=== PATIENT | female | born 1955 | race Caucasian/White ===

== ENCOUNTER 2017-05-31 00:04 | Emergency (ER) | payer BC ==
[~2017-05-31] VITALS: Ht 154.9 cm; Wt 68.9 kg
[~2017-05-31 00:04] MED LIST: RANI-362 PO
[2017-05-31 00:15] VITALS: BP_SYST 157
[2017-05-31 00:53] LABS: BASOPHILS # (AUTO) 0.1 K/uL (0.0-0.2); BASOPHILS % (AUTO) 0.9 % (0.0-2.0); EOSINOPHILS % (AUTO) 0.2 % (0.0-4.0); HEMATOCRIT 38.4 % (36-48); HEMOGLOBIN 12.7 g/dL (12.0-16.0); LYMPHOCYTES % (AUTO) 6.2 % (20.5-51.5); MEAN CORPUSCULAR HEMOGLOBIN 30 pg (27-31); MEAN CORPUSCULAR HGB CONC 33 % (32-36); MEAN CORPUSCULAR VOLUME 92 fL (79.0-98.0); MONOCYTES # (AUTO) 1.1 K/uL (0.0-1.0); MONOCYTES % (AUTO) 6.7 % (1.7-9.3); NEUTROPHILS # (AUTO) 14.3 K/uL (1.8-7.7); PLATELET COUNT (AUTO) 296 K/uL (130-430); WHITE BLOOD COUNT (AUTO) 16.5 K/uL (4.8-10.8)
[2017-05-31] MEDS: KETOROLAC TROMETHAMINE 60 MG/2 ML VIAL IM ONE (01:16)
[2017-05-31 02:51] LABS: BILIRUBIN,URINE NEGATIVE (NEGATIVE); COLOR,URINE YELLOW (YELLOW); GLUCOSE,URINE NEGATIVE (NEGATIVE); KETONES,URINE NEGATIVE (NEGATIVE); LEUKOCYTE ESTERASE ,URINE 3+ (NEGATIVE); NITRITE, URINE NEGATIVE (NEGATIVE); PROTEIN URINE NEGATIVE (NEGATIVE); UROBILINOGEN,URINE 0.2 (0.2-1.0)
[2017-05-31 02:52] LABS: BLOOD, URINE TRACE (NEGATIVE); CLARITY/URINE HAZY (CLEAR)
[2017-05-31 02:55] LABS: BACTERIA,URINE MODERATE /HPF (None Seen); MUCUS,URINE None Seen /LPF (None Seen); WBC,URINE 80-100 /HPF (0-3)
[2017-05-31] MEDS: cefTRIAXone 1 GM VIAL IM ONE (03:09)
[2017-05-31] MEDS: LIDOCAINE MPF 1% 50 MG/5 ML AMP INJ ONE (03:10)
[2017-05-31 03:22] VITALS: BP_SYST 107
== END 2017-05-31 03:23 | disposition home or self-care (01) ==
LOC: SED 00:04
DX: N10 Acute pyelonephritis (principal); K21.9 Gastro-esophageal reflux disease without esophagitis
CPT/HCPCS: 36415; 81000; 83605; 85025; 87086; 96372; 99284; J0696; J1885; J2001

== ENCOUNTER 2018-09-24 23:43 | Emergency (ER) | payer BC ==
[~2018-09-24] VITALS: Ht 154.9 cm; Wt 72.6 kg
[2018-09-24 23:57] VITALS: BP_SYST 130
[2018-09-25] MEDS ORDERED: ONDANSETRON HCL 4 MG/2 ML VIAL IVP ONE (00:30)
[2018-09-25] MEDS ORDERED: NACL 0.9% 1,000 ML IV ONE (00:30)
[2018-09-25 00:55] LABS: BASOPHILS # (AUTO) 0.1 K/uL (0.0-0.2); BASOPHILS % (AUTO) 0.9 % (0.0-2.0); EOSINOPHILS # (AUTO) 0.1 K/uL (0.0-0.4); EOSINOPHILS % (AUTO) 0.7 % (0.0-4.0); HEMATOCRIT 45.3 % (36-48); HEMOGLOBIN 14.7 g/dL (12.0-16.0); LYMPHOCYTES # (AUTO) 0.6 K/uL (1.0-5.5); LYMPHOCYTES % (AUTO) 6.9 % (20.5-51.5); MEAN CORPUSCULAR HEMOGLOBIN 30 pg (27-31); MEAN CORPUSCULAR HGB CONC 33 % (32-36); MEAN CORPUSCULAR VOLUME 93 fL (79.0-98.0); MONOCYTES # (AUTO) 0.1 K/uL (0.0-1.0); MONOCYTES % (AUTO) 1.7 % (1.7-9.3); NEUTROPHILS # (AUTO) 7.5 K/uL (1.8-7.7); NEUTROPHILS % (AUTO) 89.8 % (40.0-70.0); PLATELET COUNT (AUTO) 432 K/uL (130-430); RED BLOOD CELL COUNT(AUTO) 4.88 MIL/uL (4.2-6.2); RED CELL DISTRIBUTION WIDTH 12.7 % (9.0-15.0); WHITE BLOOD COUNT (AUTO) 8.4 K/uL (4.8-10.8)
[2018-09-25 01:03] LABS: CALCIUM 9.1 mg/dL (8.4-11.0); CREATININE 0.9 mg/dL (0.55-1.30); POTASSIUM 3.9 mmol/L (3.5-5.1)
[2018-09-25 01:08] LABS: ALBUMIN 3.7 g/dL (3.4-4.8); TOTAL BILIRUBIN 0.5 mg/dL (0.0-1.0)
[2018-09-25 01:45] VITALS: BP_SYST 127
== END 2018-09-25 01:45 | disposition home or self-care (01) ==
LOC: SED 23:43
DX: A08.4 Viral intestinal infection, unspecified (principal); K21.9 Gastro-esophageal reflux disease without esophagitis; R03.0 Elevated blood-pressure reading, without diagnosis of hypertension
CPT/HCPCS: 36415; 80053; 85025; 86710; 96361; 96374; 99283; J2405; J7030

== ENCOUNTER 2020-12-15 08:30 | Emergency (ER) | payer BC, OTHER, SELFPAY ==
[~2020-12-15] VITALS: Ht 154.9 cm; Wt 68.9 kg
[2020-12-15 08:42] VITALS: BP_SYST 147
[2020-12-15] MEDS ORDERED: ONDANSETRON 4 MG ODT TAB ONE ×2 (08:56→09:13)
[2020-12-15] MEDS ORDERED: ACETAMINOPHEN 325 MG TABLET PO ONE (09:00)
[2020-12-15] MEDS ORDERED: ONDANSETRON 4 MG ODT TAB PO ONE (09:00)
[2020-12-15 09:10] LABS: BASOPHILS # (AUTO) 0.1 K/uL (0.0-0.2); EOSINOPHILS # (AUTO) 0.2 K/uL (0.0-0.4); EOSINOPHILS % (AUTO) 3.5 % (0.0-4.0); HEMATOCRIT 39.2 % (36-48); LYMPHOCYTES # (AUTO) 1.3 K/uL (1.0-5.5); LYMPHOCYTES % (AUTO) 27.4 % (20.5-51.5); MEAN CORPUSCULAR HEMOGLOBIN 31 pg (27-31); MEAN CORPUSCULAR HGB CONC 33 % (32-36); MEAN CORPUSCULAR VOLUME 93 fL (79.0-98.0); MONOCYTES # (AUTO) 0.3 K/uL (0.0-1.0); MONOCYTES % (AUTO) 6.8 % (1.7-9.3); NEUTROPHILS % (AUTO) 61.3 % (40.0-70.0); PLATELET COUNT (AUTO) 315 K/uL (130-430); RED BLOOD CELL COUNT(AUTO) 4.23 MIL/uL (4.2-6.2); RED CELL DISTRIBUTION WIDTH 14.1 % (9.0-15.0); WHITE BLOOD COUNT (AUTO) 4.8 K/uL (4.8-10.8)
[2020-12-15 09:24] LABS: CALCIUM 8.6 mg/dL (8.4-11.0); CREATININE 0.71 mg/dL (0.55-1.30); POTASSIUM 3.9 mmol/L (3.5-5.1)
[2020-12-15 09:25] LABS: BILIRUBIN,URINE NEGATIVE (NEGATIVE); CLARITY/URINE CLEAR (CLEAR); COLOR,URINE YELLOW (YELLOW); GLUCOSE,URINE NEGATIVE (NEGATIVE); KETONES,URINE NEGATIVE (NEGATIVE); LEUKOCYTE ESTERASE ,URINE TRACE (NEGATIVE); NITRITE, URINE NEGATIVE (NEGATIVE); PROTEIN URINE NEGATIVE (NEGATIVE); UROBILINOGEN,URINE 0.2 (0.2-1.0)
[2020-12-15 09:30] LABS: ALBUMIN 3.3 g/dL (3.4-4.8); TOTAL BILIRUBIN 0.2 mg/dL (0.0-1.0)
[2020-12-15 09:31] LABS: BLOOD, URINE TRACE (NEGATIVE)
[2020-12-15 09:43] LABS: PROTHROMBIN TIME 9.8 SECS (9.5-12.5)
[2020-12-15] MEDS ORDERED: ONDA4TAB5 PO (10:36)
[2020-12-15] MEDS ORDERED: CIPR-211 PO (10:36)
[2020-12-15 10:43] VITALS: BP_SYST 138
[2020-12-15 10:50] LABS: BACTERIA,URINE FEW /HPF (None Seen)
== END 2020-12-15 10:43 | disposition home or self-care (01) ==
LOC: SED 08:30
DX: N39.0 Urinary tract infection, site not specified (principal); K21.9 Gastro-esophageal reflux disease without esophagitis; F41.9 Anxiety disorder, unspecified; E11.9 Type 2 diabetes mellitus without complications; Z20.822 Contact with and (suspected) exposure to COVID-19; Z79.899 Other long term (current) drug therapy; Z90.710 Acquired absence of both cervix and uterus
CPT/HCPCS: 70450; 76376; 80053; 81000; 83690; 84484; 85025; 85610; 85730; 93005; 99285; C9803; Q0162; U0003

== ENCOUNTER 2021-12-19 21:14 | Emergency (ER) | payer BC, OTHER ==
[~2021-12-19] VITALS: Ht 154.9 cm; Wt 70.3 kg
[~2021-12-19 21:14] MED LIST changes: +CIPR500T5 PO; +ONDA4TAB5 PO
[2021-12-19 21:30] VITALS: BP_SYST 127
--- NOTE | 2021-12-19 21:30 | NUR ---
Patient to ER bed 7 to gown for evaluation. Side rails up. Report given to PHILIP MONTERO.
--- NOTE | 2021-12-19 22:02 | NUR ---
PT C/O FALL WITH INJURY TO LT SHOULDER. PT ACCIDENTLY WALKED THROUGH SCREEN DOOR CAUSING FALL.
--- NOTE | 2021-12-19 22:24 | NUR ---
ER at bedside examining patient.
[2021-12-19] MEDS ORDERED: DIPH-TET-PERTUS Vaccine 0.5 ML VIAL (ADACEL) I.M. ONE (22:30)
[2021-12-19] MEDS ORDERED: KETOROLAC TROMETHAMINE 60 MG/2 ML VIAL IM ONE (22:30)
[2021-12-19] MEDS ORDERED: ACETAMINOPHEN 500 MG TABLET PO ONE (22:30)
[2021-12-19] MEDS ORDERED: BACITRACIN 1 GM OINT TP ONE (23:21)
--- NOTE | 2021-12-19 23:26 | NUR ---
LACERATION TO LEFT KNEE, IRREGATED THEN BACITRACIN AND BANDAGE APPIED BY RN.
--- NOTE | 2021-12-20 00:28 | NUR ---
Patient given written and verbal discharge instructions and verbalizes understanding. ER MD discussed with patient the results and treatment provided. Patient in stable condition. ID arm band removed. Opportunity for questions provided and answered.
[2021-12-20 00:29] VITALS: BP_SYST 126
== END 2021-12-20 00:29 | disposition home or self-care (01) ==
LOC: SED 21:14
DX: S43.401A Unspecified sprain of right shoulder joint, initial encounter (principal); S83.92XA Sprain of unspecified site of left knee, initial encounter; K21.9 Gastro-esophageal reflux disease without esophagitis; Z79.899 Other long term (current) drug therapy; W18.39XA Other fall on same level, initial encounter; Y93.89 Activity, other specified; Y92.89 Other specified places as the place of occurrence of the external cause; Y99.8 Other external cause status
CPT/HCPCS: 73030; 73060; 73564; 90471; 90715; 96372; 99284; J1885

== ENCOUNTER 2023-08-16 08:00 | Emergency (ER) | payer OTHER, BC ==
[~2023-08-16] VITALS: Ht 154.9 cm; Wt 70.3 kg
[2023-08-16 08:00] VITALS: BP_SYST 158; PULSE 100; RESP 18; TEMP 97.8; O2SAT 98
[2023-08-16 09:21] LABS: BASOPHILS # (AUTO) 0.1 K/uL (0.0-0.2); BASOPHILS % (AUTO) 1.4 % (0.0-2.0); EOSINOPHILS # (AUTO) 0.2 K/uL (0.0-0.4); EOSINOPHILS % (AUTO) 3.6 % (0.0-4.0); HEMATOCRIT 43.1 % (36-48); HEMOGLOBIN 14.2 g/dL (12.0-16.0); LYMPHOCYTES # (AUTO) 1.4 K/uL (1.0-5.5); MEAN CORPUSCULAR HEMOGLOBIN 30 pg (27-31); MEAN CORPUSCULAR HGB CONC 33 % (32-36); MEAN CORPUSCULAR VOLUME 92 fL (79.0-98.0); MONOCYTES # (AUTO) 0.4 K/uL (0.0-1.0); MONOCYTES % (AUTO) 7.7 % (1.7-9.3); NEUTROPHILS # (AUTO) 2.9 K/uL (1.8-7.7); NEUTROPHILS % (AUTO) 58.3 % (40.0-70.0); PLATELET COUNT (AUTO) 349 K/uL (130-430); RED BLOOD CELL COUNT(AUTO) 4.68 MIL/uL (4.2-6.2); RED CELL DISTRIBUTION WIDTH 14.4 % (9.0-15.0); WHITE BLOOD COUNT (AUTO) 4.9 K/uL (4.8-10.8)
[2023-08-16 09:36] LABS: ANION GAP 8 (5-15); CARBON DIOXIDE 28 mmol/L (23-29); CHLORIDE 106 mmol/L (98-107); CREATININE 0.63 mg/dL (0.55-1.30); GFR AFRICAN AMERICAN 121 mL/min (>90); GLUCOSE 123 mg/dL (74-106); POTASSIUM 4.2 mmol/L (3.5-5.1); SODIUM SERUM 142 mmol/L (136-145); UREA NITROGEN, BLOOD 11 mg/dL (8-21)
[2023-08-16 09:39] LABS: GFR NON AFRICAN-AMERICAN 100 mL/min (>90)
[2023-08-16 09:39] LABS: BILIRUBIN,URINE NEGATIVE (NEGATIVE); BLOOD, URINE NEGATIVE (NEGATIVE); CLARITY/URINE SL CLOUDY (CLEAR); COLOR,URINE YELLOW (YELLOW); GLUCOSE,URINE NEGATIVE (NEGATIVE); KETONES,URINE NEGATIVE (NEGATIVE); LEUKOCYTE ESTERASE ,URINE 1+ (NEGATIVE); NITRITE, URINE NEGATIVE (NEGATIVE); PH,URINE 5.5 (5.0-8.0); PROTEIN URINE NEGATIVE (NEGATIVE); UROBILINOGEN,URINE 0.2 (0.2-1.0)
[2023-08-16 09:43] LABS: ALANINE AMINOTRANSFERASE 29 U/L (12-78); ALBUMIN 3.4 g/dL (3.4-4.8); ASPARTATE AMINOTRANSFERASE 15 U/L (10-37); TOTAL BILIRUBIN 0.3 mg/dL (0.0-1.0); TOTAL PROTEIN, SERUM 7.4 g/dL (6.4-8.3)
[2023-08-16 10:12] LABS: BACTERIA,URINE FEW /HPF (None Seen); RBC,URINE 0-3 /HPF (0-3)
[2023-08-16] MEDS ORDERED: MECL-292 PO (10:27)
[2023-08-16 11:03] VITALS: BP_SYST 141; PULSE 81; RESP 20; TEMP 98.1; O2SAT 99
== END 2023-08-16 11:03 | disposition home or self-care (01) ==
LOC: SED 08:00
DX: R42 Dizziness and giddiness (principal); I10 Essential (primary) hypertension; R51.9 Headache, unspecified; R11.0 Nausea; K21.9 Gastro-esophageal reflux disease without esophagitis; Z79.899 Other long term (current) drug therapy
CPT/HCPCS: 36415; 70450-TC; 71045; 76376; 80053; 81000; 84484; 85025; 87086; 93005; 99285